=== PATIENT | male | born 1945 | race Caucasian/White ===

== ENCOUNTER 2017-02-17 14:25 | Emergency (ER) | payer MEDICARE, BC ==
[2017-02-17] MEDS: EPINEPHRINE HCL 0.1 MG/ML SOL IV PRN ×4 (14:25→14:35)
[2017-02-17] MEDS ORDERED: SODIUM CHLORIDE 0.9% FLUSH 10 ML SOL IV PRN (15:13)
[2017-02-17 15:15] VITALS: PULSE 51
[2017-02-17 15:22] VITALS: O2SAT 91
[2017-02-17] MEDS ORDERED: EPINEPHRINE 1:10,000 PREFILL 0.1 MG/ML SOL ONE (22:25)
== END 2017-02-17 14:40 | disposition expired | DRG 298 ==
LOC: ED 14:25
DX: I46.9 Cardiac arrest, cause unspecified (principal)
CPT/HCPCS: 96374; 99291